=== PATIENT | female | born 1940 | race Hispanic/Latino ===

== ENCOUNTER 2021-06-19 04:17 | Emergency (ER) | payer MEDICARE, OTHER ==
[~2021-06-19] VITALS: Ht 154.9 cm; Wt 78.5 kg
[2021-06-19] MEDS ORDERED: LIDOCAINE 5% TOPICAL PATCH TP ONE (06:00)
[2021-06-19] MEDS ORDERED: KETOROLAC 15MG/ML VIAL (15MG/ML) IM ONE (06:00)
[2021-06-19 06:48] LABS: BASOPHILS % (AUTO) 0.1 % (0.0-5.0); EOSINOPHILS % (AUTO) 0.1 % (0.0-8.0); HEMATOCRIT 43.4 % (36-48); LYMPHOCYTES % (AUTO) 8.8 % (21.0-51.0); MEAN CORPUSCULAR HEMOGLOBIN 29.6 pg (27.0-33.0); MEAN CORPUSCULAR HGB CONC 32.9 g/dL (32.0-36.0); MEAN CORPUSCULAR VOLUME 89.9 fL (79-99); MONOCYTES % (AUTO) 7.3 % (3.0-13.0); NEUTROPHILS % (AUTO) 83.2 % (40.0-77.0); PLATELET COUNT (AUTO) 170 K/uL (130-400); RED BLOOD CELL COUNT(AUTO) 4.83 MIL/uL (4.00-5.50); RED CELL DISTRIBUTION WIDTH 14.2 % (11.0-15.5); WHITE BLOOD COUNT (AUTO) 12.3 K/uL (4.8-10.8)
[2021-06-19] MEDS ORDERED: ONDANSETRON 4MG INJ ONE (06:49)
[2021-06-19] MEDS ORDERED: MORPHINE 2 MG SYG ONE (06:49)
[2021-06-19 07:15] LABS: ALBUMIN 3.2 g/dL (3.5-5.0); BILIRUBIN,TOTAL 0.8 mg/dL (0.2-1.0); CREATININE 0.7 mg/dL (0.5-1.5); MAGNESIUM 1.9 mg/dL (1.80-2.40); POTASSIUM 4.2 mmol/L (3.5-5.1); TOTAL PROTEIN, SERUM 7.5 g/dL (6.0-8.3)
[2021-06-19 07:49] LABS: B-TYPE NATRIURETIC PEPTIDE 518 pg/mL (0-100)
[2021-06-19] MEDS ORDERED: FUROSEMIDE 40MG VIAL ONE (07:59)
[2021-06-19] MEDS: FUROSEMIDE 40MG VIAL IV SCH ×2 (08:00→10:43)
[2021-06-19] MEDS ORDERED: IOHEXOL-350 75 ML VIAL IV ONE (09:16)
[2021-06-19] MEDS ORDERED: METOPROLOL TARTRATE 1 MG/ML 5ML VIAL IV ONE (10:39)
[2021-06-19] MEDS ORDERED: METOPROLOL TARTRATE 1 MG/ML 5ML VIAL IV SCH (11:00)
[2021-06-19] MEDS ORDERED: DICL20GE TP (11:21)
[2021-06-19] MEDS ORDERED: FURO20TA6 PO (11:22)
[2021-06-19 11:41] VITALS: BP 135/65
== END 2021-06-19 12:05 | disposition home or self-care (01) ==
LOC: EDSEX 04:17 → EDH 04:17
DX: S29.012A Strain of muscle and tendon of back wall of thorax, initial encounter (principal); I11.0 Hypertensive heart disease with heart failure; I50.9 Heart failure, unspecified; I48.92 Unspecified atrial flutter; E03.9 Hypothyroidism, unspecified; E78.00 Pure hypercholesterolemia, unspecified; Z88.1 Allergy status to other antibiotic agents; Z79.1 Long term (current) use of non-steroidal anti-inflammatories (NSAID); X58.XXXA Exposure to other specified factors, initial encounter; Y93.89 Activity, other specified; Y92.89 Other specified places as the place of occurrence of the external cause; Y99.8 Other external cause status
CPT/HCPCS: 36415; 71045; 71275; 80053; 83735; 83880; 84484 ×2; 85025; 85378; 93005; 96372; 96374; 96375; 99285; J1885; J1940; J2405; J3490 ×2; Q9967

== ENCOUNTER 2022-03-14 22:35 | Emergency (ER) | payer MEDICARE, OTHER ==
[~2022-03-14] VITALS: Ht 154.9 cm; Wt 77.6 kg
[~2022-03-14 22:35] MED LIST: DICL20GE TP; FURO20TA6 PO
[2022-03-15] MEDS ORDERED: HYDRALAZINE 20MG/ML VIAL ONE (00:43)
[2022-03-15 00:49] LABS: BASOPHILS % (AUTO) 0.4 % (0.0-5.0); EOSINOPHILS % (AUTO) 0.8 % (0.0-8.0); LYMPHOCYTES % (AUTO) 24.7 % (21.0-51.0); MEAN CORPUSCULAR HEMOGLOBIN 30.2 pg (27.0-33.0); MEAN CORPUSCULAR HGB CONC 33.9 g/dL (32.0-36.0); MEAN CORPUSCULAR VOLUME 89.1 fL (79-99); MONOCYTES % (AUTO) 6.6 % (3.0-13.0); NEUTROPHILS % (AUTO) 67.2 % (40.0-77.0); PLATELET COUNT (AUTO) 162 K/uL (130-400); RED BLOOD CELL COUNT(AUTO) 4.94 MIL/uL (4.00-5.50); RED CELL DISTRIBUTION WIDTH 14.2 % (11.0-15.5); WHITE BLOOD COUNT (AUTO) 7.9 K/uL (4.8-10.8)
[2022-03-15] MEDS ORDERED: HYDRALAZINE 20MG/ML VIAL IV ONE ×2 (01:00→04:00)
[2022-03-15 01:03] LABS: CREATININE 0.8 mg/dL (0.5-1.5); POTASSIUM 3.7 mmol/L (3.5-5.1)
[2022-03-15 01:07] LABS: ALBUMIN 3.7 g/dL (3.5-5.0); TOTAL PROTEIN, SERUM 7.1 g/dL (6.0-8.3)
[2022-03-15 01:38] LABS: B-TYPE NATRIURETIC PEPTIDE 123 pg/mL (0-100)
[2022-03-15] MEDS ORDERED: CLON0.1T PO (06:08)
[2022-03-15 06:30] VITALS: BP 131/63
== END 2022-03-15 06:30 | disposition home or self-care (01) ==
LOC: EDH 22:35
DX: I16.0 Hypertensive urgency (principal); I48.91 Unspecified atrial fibrillation; E78.00 Pure hypercholesterolemia, unspecified; Z98.890 Other specified postprocedural states; Z88.1 Allergy status to other antibiotic agents; Z79.899 Other long term (current) drug therapy
CPT/HCPCS: 99285; 84484; 80053; 83880; 85025; 36415; 96374; 96376; 93005; J0360 ×2